=== PATIENT | female | born 1980 | race Hispanic/Latino ===

== ENCOUNTER 2020-11-18 19:40 | Emergency (ER) | payer OTHER ==
[~2020-11-18] VITALS: Ht 160 cm; Wt 86.0 kg
[~2020-11-18 19:40] MED LIST: ROBITUSSI OR; XANAX0.25 MG PO
[2020-11-18] MEDS ORDERED: PRENATA3 PO (20:12)
[2020-11-18] MEDS ORDERED: PREDNISONE50 MG PO (21:14)
[2020-11-18 21:29] VITALS: BP 110/70
== END 2020-11-18 21:33 | disposition home or self-care (01) ==
LOC: ED 19:40
DX: L50.0 Allergic urticaria (principal)